=== PATIENT | male | born 1960 | race Hispanic/Latino ===

== ENCOUNTER 2017-12-30 23:47 | Emergency (ER) | payer OTHER, BC ==
[2017-12-30 23:53] VITALS: O2SAT 100
[2017-12-31] MEDS ORDERED: Tdap Vaccine 0.5 ml Vial (10-64 yrs) IM ONE ×2 (00:34→00:45)
[2017-12-31] MEDS ORDERED: Lidocaine 1% Inj (20ml) IJ STA (00:34)
[2017-12-31] MEDS ORDERED: Lidocaine 1% Inj (20ml) ONE (00:45)
--- NOTE | 2017-12-31 03:18 | ED PDOC ---
HPI: Trauma/Fall - HPI Time Seen by Provider: 12/31/17 00:02 Chief Complaint (Nursing): Trauma Chief Complaint (Provider): Lacerations, Facial Injury History Per: Patient History/Exam Limitations: no limitations Onset/Duration Of Symptoms: Mins Injury Occurred (Timing): Just Before Arrival Location Of Injury: Left: Forearm, Anterior: Abdomen Additional Complaint(s): 57yo male with history of high cholesterol, former alcoholism (sober 6 years), presents to ER via EMS for evaluation of multiple lacerations. Patient was at home, leaning on his bathroom sink when the sink fell out of the wall and shattered and the patient landed on the shards. He sustained an abrasion to the left eyelid, laceration the epigastric abdomen, laceration to right 2nd digit and 2 abrasions to left forearm. He denies taking any medications prior to arrival and is unsure of his last tetanus status. He denies any loss of consciousness, nausea, vomiting, abdominal pain, visual changes. He also denies any dizziness, palpitations, chest pain. No other medical complaints. Patient is right hand dominant. PMD: Dr. Duarte Past Medical History Reviewed: Historical Data, Nursing Documentation, Vital Signs Vital Signs: Last Vital Signs Temp 98 F 12/30/17 23:48 Pulse 78 12/30/17 23:48 Resp 15 12/30/17 23:48 BP 167/95 H 12/30/17 23:48 Pulse Ox 100 12/30/17 23:48 - Medical History PMH: HTN, Hyperlipidemia - Surgical History Surgical History: No Surg Hx - Family History Family History: States: No Known Family Hx - Social History Current smoker - smoking cessation education provided: No Alcohol: Other (past alcoholic, 6 years sober) Drugs: Denies - Immunization History Hx Tetanus Toxoid Vaccination: No (unknown) - Home Medications Home Medications: Ambulatory Orders Medication Instructions Recorded Bacitracin Ointment [Bacitracin] 1 applic TOP BID #1 tube 12/31/17 Cephalexin [Keflex] 500 mg PO BID #14 capsule 12/31/17 - Allergies Allergies/Adverse Reactions: Allergies Allergy/AdvReac Type Severity Reaction Status Date / Time No Known Allergies Allergy Verified 12/30/17 23:53 Review of Systems ROS Statement: Except As Marked, All Systems Reviewed And Found Negative Constitutional: Negative for: Fever, Chills Eyes: Positive for: Other (abrasion left eyelid). Negative for: Vision Change ENT: Negative for: Nose Pain Cardiovascular: Negative for: Chest Pain Respiratory: Negative for: Shortness of Breath Gastrointestinal: Positive for: Other (laceration epigastric abdomen). Negative for: Abdominal Pain Musculoskeletal: Positive for: Other (left forearm lacerations, right 2nd digit laceration) Neurological: Negative for: Headache Physical Exam - Reviewed Nursing Documentation Reviewed: Yes Vital Signs Reviewed: Yes - Physical Exam Comments: GENERAL APPEARANCE: Patient is awake, alert, oriented x 3, in no acute distress. SKIN: Warm, dry; (-) cyanosis. EYES: Mild edema and ecchymosis to left eye orbit. 0.25cm superficial abrasion to lateral aspect of left upper eyelid; no foreign body noted. EOM's intact and painless. NO conjunctival injection, no periorbital tenderness, no palpable bony deformities. ENMT: Mucous membranes moist. No nasal bone tenderness. No hemotympanum bilaterally. No TMJ join tenderness. No mandible tenderness. NECK: Supple, FROM (-) tenderness, (-) stiffness, (-) lymphadenopathy CHEST AND RESPIRATORY: (-) rash, (-) chest wall tenderness. Lungs: (-) rales , (-) rhonchi, (-) wheezes, (-) rub; breath sounds equal bilaterally. Speaking in full sentences, respirations even and nonlabored. HEART AND CARDIOVASCULAR: (-) irregularity; (-) murmur, (-) gallop, (-) rub. ABDOMEN AND GI: Soft; Non-tender, no guarding (-) distention. (+) 3cm horizontal laceration to epigastric abdomen with surrounding erythema and superficial abrasions (+) active bleeding (-) ecchymosis. EXTREMITIES: (+) distal pulses. (+) 1cm abrasion and 1cm x 1cm skin avulsion to distal left forearm with active bleeding and no surrounding tenderness or ecchymosis. FROM of left elbow, wrist and hand. Neurovascularly intact, sensation intact throughout. 1cm superficial laceration to pena aspect of distal right 2nd digit with active bleeding. No bony deformities, +FROM of all digits. Capillary refill < 2 seconds. No ecchymosis or swelling. BACK: (-) Vertebral tenderness NEURO AND PSYCH: Mental status as above. Cranial nerves grossly intact; strength symmetric. Gait steady, speech clear. Cerebellar tests intact. - ECG O2 Sat by Pulse Oximetry: 100 (RA) Pulse Ox Interpretation: Normal Medical Decision Making Medical Decision Making: Impression: Facial contusion, multiple lacerations s/p fall Plan: -- Laceration repair, see procedure notes. -- TDAP booster -- Keflex 500mg PO -- XR abdomen 2 views -- Patient declined pain medication in ED Time: 0259 XR as read by PETR Mahajan indicates no free air in abdomen. Patient advised that official radiology read of XR is still pending and will call the patient if there is any discrepancy within 24 hours. On re-evaluation, patient reports improvement of symptoms. On exam, patient remains AAOx3, in no acute distress. Lungs clear to auscultation, cardiac RRR, abdomen soft, non-tender, repeat neuro exam shows no focal findings. Repeat BP: 134/81, Repeat HR: 70. VSS, stable for discharge. Educated on wound care. Advised to follow up with primary care physician in 1-2 days without fail. Advised to take medication as prescribed. Return to the emergency room at any time for any new or worsening symptoms. Patient states he fully agrees with and understands discharge instructions. States that he agrees with the plan and disposition. Verbalized and repeated discharge instructions and plan. I have given the patient opportunity to ask any additional questions. Scribe Attestation: Documented by Leah Blancas, acting as a scribe for EPTR Jaeger Provider Scribe Attestation: All medical record entries made by the Scribe were at my direction and personally dictated by me. I have reviewed the chart and agree that the record accurately reflects my personal performance of the history, physical exam, medical decision making, and the department course for this patient. I have also personally directed, reviewed, and agree with the discharge instructions and disposition. Procedures - Time-Out Type of Procedure: laceration repair Site of Procedure: left forearm, epigastric abdomen, right 2nd digit Correct Patient (with visual ID + MR# on ID Band): Yes Correct Procedure: Yes Correct Site Marked: Yes PA/Tech: PETR Jaeger - Laceration/Wound Repair Left forearm Wound Length (cm): 1 Wound's Depth, Shape: superficial Wound Explored: clean Betadine Prep?: No Wound Repaired With: Steri-strips (2) Wound Complexity: Simple Progress: patient tolerated procedure well Right 2nd digit Wound Length (cm): 1 Wound's Depth, Shape: superficial, linear Irrigated w/ Saline (ccs): 25 Anesthesia: 1% Lidocaine Volume Anesthetic (ccs): 2 Wound Repaired With: Sutures (3) Suture Size/Type: 5:0 (ethilon) Wound Complexity: Simple Sterile Dressing Applied?: Yes Progress: Tolerated procedure well. Neurovascular sensations intact. Epigastric abdomen Wound Length (cm): 3 Wound's Depth, Shape: superficial, linear Irrigated w/ Saline (ccs): 200 Anesthesia: 1% Lidocaine Volume Anesthetic (ccs): 6 Wound Repaired With: Sutures (6) Suture Size/Type: 4:0 (ethilon) Wound Complexity: Simple Sterile Dressing Applied?: Yes Progress: Bacitracin and sterile dressing applied. Patient tolerated procedure well. Skin Avulsion left forearm Wound Length (cm): 1 Wound's Depth, Shape: superficial Wound Explored: no foreign body removed Betadine Prep?: No Wound Complexity: Simple Sterile Dressing Applied?: Yes Progress: 1cm x 1cm skin avulsion to distal dorsal left forearm. Area irrigated with sterile water, bacitracin and sterile dressing applied. Bleeding controlled. Patient tolerated procedure well. Disposition - Clinical Impression Clinical Impression: Facial contusion, Fall, Finger laceration, Laceration of abdominal wall, Avulsion of skin of forearm, Abrasion of forearm - Patient ED Disposition Is Patient to be Admitted: No Counseled Patient/Family Regarding: Studies Performed, Diagnosis, Need For Followup, Rx Given - Disposition Disposition: Routine/Home Disposition Time: 03:12 Condition: STABLE Additional Instructions: FOLLOW UP WITH PMD IN 1-2 DAYS WITHOUT FAIL FOR WOUND CHECK. RETURN TO ED WITH ANY NEW OR WORSENING SYMPTOMS. SUTURE REMOVAL TO ABDOMEN IN 10-14 DAYS. SUTURE REMOVAL TO RIGHT SECOND DIGIT IN 7 DAYS. KEEP WOUNDS CLEAN AND DRY. CLEAN TWICE DAILY WITH WARM WATER AND ANTIBACTERIAL SOAP. TAKE ANTIBIOTICS UNTIL COMPLETE. Prescriptions: Bacitracin Ointment [Bacitracin] 1 applic TOP BID #1 tube Cephalexin [Keflex] 500 mg PO BID #14 capsule Instructions: Black Eye, Skin Abrasions, Wound Care, Contusion (DC), Laceration Repair With Stitches (DC), Minor Head Injury (DC), Skin Abrasions (DC ) Forms: [employer] ([place]an) Print Language: GHANAIAN - POA Present On Arrival: Falls Or Trauma
[2017-12-31 04:04] VITALS: BP 134/81; PULSE 70; RESP 17; TEMP 98.3
--- NOTE | 2017-12-31 08:40 | RAD ---
HISTORY: SOFT TISSUE INJURY, R/O PERF COMPARISON: No prior. FINDINGS: BOWEL: Prominent amount of retained colonic stool. No obstruction. No free air. BONES: Normal. OTHER FINDINGS: None. IMPRESSION: Prominent amount of retained colonic stool.
== END 2017-12-31 03:19 | disposition home or self-care (01) ==
LOC: H.ER 23:47
DX: S00.83XA Contusion of other part of head, initial encounter (principal); S31.119A Laceration without foreign body of abdominal wall, unspecified quadrant without penetration into peritoneal cavity, initial encounter; S51.809A Unspecified open wound of unspecified forearm, initial encounter; S50.819A Abrasion of unspecified forearm, initial encounter; S61.219A Laceration without foreign body of unspecified finger without damage to nail, initial encounter; E78.00 Pure hypercholesterolemia, unspecified; I10 Essential (primary) hypertension; Z23 Encounter for immunization